=== PATIENT | male | born 1980 | race African-American/Black ===

== ENCOUNTER 2017-07-22 21:00 | Emergency (ER) | payer MEDICAID ==
[~2017-07-22] VITALS: Ht 172.7 cm; Wt 81.0 kg
[2017-07-23 00:13] VITALS: BP 96/60
== END 2017-07-23 02:33 | disposition home or self-care (01) ==
LOC: ED 23:59
DX: F10.120 Alcohol abuse with intoxication, uncomplicated (principal)
CPT/HCPCS: 99283

== ENCOUNTER 2017-07-31 14:48 | Emergency (ER) | payer MEDICAID ==
[~2017-07-31] VITALS: Ht 177.8 cm; Wt 91.0 kg
[2017-07-31 19:37] VITALS: BP 103/64
== END 2017-07-31 19:52 | disposition home or self-care (01) ==
LOC: ED 16:57
DX: F10.229 Alcohol dependence with intoxication, unspecified (principal)
CPT/HCPCS: 99283

== ENCOUNTER 2017-10-24 06:34 | Emergency (ER) | payer MEDICAID ==
[~2017-10-24] VITALS: Ht 182.9 cm; Wt 100.0 kg
[2017-10-24 12:49] VITALS: BP 115/69
== END 2017-10-24 12:51 | disposition home or self-care (01) ==
LOC: ED 08:45
DX: G93.40 Encephalopathy, unspecified (principal)
CPT/HCPCS: 99283

== ENCOUNTER 2017-10-29 07:18 | Emergency (ER) | payer MEDICAID ==
[~2017-10-29] VITALS: Ht 170.2 cm; Wt 80.0 kg
[2017-10-29] MEDS ORDERED: HYDROmorphone 2 MG/ML, 1ML ONE ×2 (07:46→09:21)
[2017-10-29] MEDS: HYDROmorphone 2 MG/ML, 1ML IM ONE ×2 (08:00→08:07)
[2017-10-29] MEDS ORDERED: HYDROmorphone 1 MG/ML, 1ML IV ONE ×2 (08:00→08:30)
[2017-10-29 09:31] VITALS: BP 104/65
== END 2017-10-29 09:44 | disposition home or self-care (01) ==
LOC: ED 08:05
DX: F19.10 Other psychoactive substance abuse, uncomplicated (principal); G89.29 Other chronic pain; M25.571 Pain in right ankle and joints of right foot
CPT/HCPCS: 73610; 96374; 99284; J1170

== ENCOUNTER 2018-01-04 19:44 | Emergency (ER) | payer MEDICAID ==
[~2018-01-04] VITALS: Ht 167.6 cm; Wt 91.0 kg
[2018-01-04 19:49] VITALS: BP 105/75
== END 2018-01-04 20:48 | disposition home or self-care (01) ==
LOC: ED 20:42
DX: S93.491A Sprain of other ligament of right ankle, initial encounter (principal); M19.071 Primary osteoarthritis, right ankle and foot; M10.9 Gout, unspecified; Z72.9 Problem related to lifestyle, unspecified; W19.XXXA Unspecified fall, initial encounter; Y93.89 Activity, other specified; Y99.8 Other external cause status; Y92.89 Other specified places as the place of occurrence of the external cause
CPT/HCPCS: 99284

== ENCOUNTER 2018-06-06 21:51 | Inpatient (IN) | payer MEDICAID ==
[~2018-06-06] VITALS: Ht 177.8 cm; Wt 95.6 kg
[2018-06-06 22:30] LABS: BASOPHILS # (AUTO) 0.01 x10^3/uL (0-0.1); BASOPHILS % (AUTO) 0 % (0-1); EOSINOPHILS # (AUTO) 0.26 x10^3/uL (0-0.4); EOSINOPHILS % (AUTO) 2 % (1-7); LYMPHOCYTES # (AUTO) 2.41 x10^3/uL (1-3.4); LYMPHOCYTES % (AUTO) 21 % (22-44); MD NO; MEAN CORPUSCULAR HEMOGLOBIN 31.7 pg (27.5-34.5); MEAN CORPUSCULAR HGB CONC 34.6 g/dL (33.2-36.2); MEAN CORPUSCULAR VOLUME 91.6 fL (81-97); MEAN PLATELET VOLUME 7.9 fL (7.4-10.4); MONOCYTES # (AUTO) 1.05 x10^3/uL (0.2-0.8); MONOCYTES % (AUTO) 9 % (2-9); NEUTROPHILS # (AUTO) 7.82 x10^3/uL (1.8-6.8); NEUTROPHILS % (AUTO) 68 % (42-75); PLATELET COUNT 271 x10^3/uL (130-400); RED BLOOD COUNT 4.66 x10^6/uL (4.38-5.82); RED CELL DISTRIBUTION WIDTH 13.7 % (9.4-14.8)
[2018-06-06 22:31] LABS: HCT (SEDRATE) 43.4 % (39.2-51.8)
[2018-06-06 22:40] LABS: ALANINE AMINOTRANSFERASE 25 U/L (12-78); ALBUMIN 3.5 g/dL (3.4-5.0); ANION GAP 10 mmol/L (5-15); CALCIUM 8.3 mg/dL (8.5-10.1); CHLORIDE 105 mmol/L (98-107); CREATININE 0.97 mg/dL (0.7-1.3)
[2018-06-06 22:47] LABS: ALKALINE PHOSPHATASE 53 U/L (45-117); TOTAL PROTEIN 7.7 g/dL (6.4-8.2)
[2018-06-06] MEDS ORDERED: KETOROLAC 30 MG/1 ML ONE (23:54)
[2018-06-06] MEDS ORDERED: MORPHINE SULFATE 4 MG/ML, 1ML ONE (23:54)
[2018-06-06] MEDS ORDERED: ONDANSETRON 2MG/ML, 2ML ONE (23:54)
[2018-06-07] MEDS ORDERED: MORPHINE SULFATE 4 MG/ML, 1ML IVPush PRN
[2018-06-07] MEDS ORDERED: SODIUM CHLORIDE FLUSH 10ML SYR IVF ONE
[2018-06-07] MEDS ORDERED: KETOROLAC 30 MG/1 ML IVPush ONE
[2018-06-07] MEDS ORDERED: ONDANSETRON 2MG/ML, 2ML IVPush ONE
[2018-06-07] MEDS ORDERED: VANCOMYCIN PER PHARMACY MC PRN (00:30)
[2018-06-07] MEDS ORDERED: AMPICILLIN/SULBACTAM 3 GM in SODIUM CHLORIDE 0.9% 100 ML IV ONE (00:30)
[2018-06-07] MEDS ORDERED: VANCOMYCIN 1,800 MG in SODIUM CHLORIDE 0.9% 250 ML IV ONE (01:00)
[2018-06-07 01:10] VITALS: BP 132/78
[2018-06-07] MEDS ORDERED: IBUP200C8 PO (01:33)
[2018-06-07] MEDS ORDERED: ACETAMINOPHEN 500 MG TABLET PO PRN (02:00)
[2018-06-07] MEDS ORDERED: ONDANSETRON ODT 4 MG PO PRN (02:00)
[2018-06-07] MEDS ORDERED: ZOLPIDEM 5MG TABLET PO PRN (02:00)
[2018-06-07] MEDS ORDERED: POLYETHYLENE GLYCOL 17 GM PACKET PO PRN (02:00)
[2018-06-07] MEDS ORDERED: ONDANSETRON 2MG/ML, 2ML IVPush PRN (02:00)
[2018-06-07] MEDS: HEPARIN 5,000 UNITS/ML, 1ML SQ SCH ×3 (02:10→19:52)
[2018-06-07] MEDS: OXYcodone IR 5MG TABLET PO PRN ×5 (02:10→21:17)
[2018-06-07] MEDS: SODIUM CHLORIDE 0.9% 1,000 ML IV SCH ×2 (02:10→14:59)
[2018-06-07] MEDS: AMPICILLIN/SULBACTAM 1,500 MG in SODIUM CHLORIDE 0.9% 50 ML IV SCH ×3 (06:21→19:52)
[2018-06-07 07:31] VITALS: BP 117/72
[2018-06-07] MEDS: KETOROLAC 30 MG/1 ML IV PRN ×2 (11:27→19:53)
[2018-06-07 13:26] VITALS: BP 137/61
[2018-06-07 19:52] VITALS: BP 120/76
[2018-06-08] MEDS: AMPICILLIN/SULBACTAM 1,500 MG in SODIUM CHLORIDE 0.9% 50 ML IV SCH ×3 (01:43→13:23)
[2018-06-08] MEDS: OXYcodone IR 5MG TABLET PO PRN ×4 (01:43→16:21)
[2018-06-08] MEDS: SODIUM CHLORIDE 0.9% 1,000 ML IV SCH ×2 (01:43→13:21)
[2018-06-08 01:50] VITALS: BP 110/74
[2018-06-08] MEDS: HEPARIN 5,000 UNITS/ML, 1ML SQ SCH ×2 (04:01→11:25)
[2018-06-08] MEDS: KETOROLAC 30 MG/1 ML IV PRN ×2 (05:31→11:24)
[2018-06-08 07:15] VITALS: BP 106/59
[2018-06-08] MEDS ORDERED: CEPH-368 PO (12:08)
[2018-06-08 17:40] VITALS: BP 140/98
== END 2018-06-08 17:30 | disposition home or self-care (01) | DRG 603 ==
LOC: ED 06-07 00:51 → 4NOR 06-07 00:55 → SUATTDRO 06-07 01:35 → ED 06-07 01:49
PROVIDERS: ADMIT Hospitalist; ATTEND Hospitalist
DX: L03.114 Cellulitis of left upper limb (principal); F17.210 Nicotine dependence, cigarettes, uncomplicated; Y04.2XXA Assault by strike against or bumped into by another person, initial encounter; Y93.89 Activity, other specified; Y92.89 Other specified places as the place of occurrence of the external cause; Y99.8 Other external cause status; M10.9 Gout, unspecified; F10.20 Alcohol dependence, uncomplicated; F19.11 Other psychoactive substance abuse, in remission
CPT/HCPCS: 36415; 80053; 85025; 85651; 86140; 96365; 96375; J0295; J1644; J1885; J2405; J7030

== ENCOUNTER 2018-07-26 15:12 | Emergency (ER) | payer MEDICAID ==
[~2018-07-26] VITALS: Ht 177.8 cm; Wt 88.6 kg
[~2018-07-26 15:12] MED LIST: CEPH-368 PO; IBUP200C8 PO
[2018-07-26] MEDS ORDERED: HYDROcodone/APAP 5/325 TABLET PO PRN (17:00)
[2018-07-26] MEDS ORDERED: KETOROLAC 30 MG/1 ML IM ONE (17:00)
[2018-07-26 17:54] VITALS: BP 136/86
== END 2018-07-26 18:10 | disposition home or self-care (01) ==
LOC: ED 18:04
DX: M54.16 Radiculopathy, lumbar region (principal); M25.562 Pain in left knee; M10.9 Gout, unspecified
CPT/HCPCS: 72110; 96372; 99284; J1885

== ENCOUNTER 2018-10-07 02:45 | Emergency (ER) | payer MEDICAID ==
[~2018-10-07] VITALS: Ht 177.8 cm; Wt 85.0 kg
[2018-10-07 12:31] VITALS: BP 122/79
== END 2018-10-07 12:34 | disposition home or self-care (01) ==
LOC: ED 08:39
DX: F10.120 Alcohol abuse with intoxication, uncomplicated (principal); Z72.9 Problem related to lifestyle, unspecified; F17.200 Nicotine dependence, unspecified, uncomplicated
CPT/HCPCS: 99283

== ENCOUNTER 2018-10-24 23:55 | Emergency (ER) | payer MEDICAID ==
[~2018-10-24] VITALS: Ht 177.8 cm; Wt 70.0 kg
[2018-10-25 00:01] VITALS: BP 148/85
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
--- NOTE | 2018-10-25 01:09 | NUR ---
THIS RN TO CHECK ON PT. PT FOUND URINATING IN THE SINK. PT INFORMED THAT IS NOT PROPER CONDUCT FOR THIS HOSPITAL. PT AMB W/ STEADY GAIT ACROSS ROOM. PA NOTIFIED. AWAITING D/C INSTRUCTIONS.
== END 2018-10-25 01:36 | disposition home or self-care (01) ==
LOC: ED 10-25 00:55
DX: F10.220 Alcohol dependence with intoxication, uncomplicated (principal)
CPT/HCPCS: 99283

== ENCOUNTER 2018-11-19 18:37 | Emergency (ER) | payer MEDICAID ==
[~2018-11-19] VITALS: Ht 177.8 cm; Wt 91.0 kg
--- NOTE | 2018-11-19 18:58 | NUR ---
PT BIB EMS FOR ETOH AND BEING UNABLE TO AMBULATE WHILE AT THE [facility]. PT TRANSFERRED TO ED [facility]. PT URINATED ON HIMSELF. PT ALERT TO VOICE. VSS. SIDERAILS UP X 2, CALL LIGHT IN REACH. PT HANDOFF REPORT TO BALBINA BUSTOS.
--- NOTE | 2018-11-19 18:59 | NUR ---
REPORT RECEIVED FROM AKASH AGUILAR. ASSUMED CARE OF PT
--- NOTE | 2018-11-19 19:04 | NUR ---
DR. DAS AT BEDSIDE EVALUATING PT
--- NOTE | 2018-11-19 19:45 | NUR ---
PT SLEEPING. RESPIRATIONS EVEN AND UNLABORED. O2 SATS REMAIN WITHIN NORMAL LIMITS. AWAITING PT TO SOBER UP FOR SAFE DISCHARGE
--- NOTE | 2018-11-19 20:51 | NUR ---
PT SLEEPING. TOSSING AND TURNING ON GURNEY. ALL VITALS STABLE. PT IN [facility] ROOM FOR MONITORING. WILL CONTINUE TO MONITOR.
[2018-11-19 22:16] VITALS: BP 112/63
--- NOTE | 2018-11-19 22:47 | NUR ---
PT CONTINUES TO SLEEP, CONTINUES TO MOVE AROUND WHILE REMAINING ASLEEP. VITALS STABLE. AWAITING PT TO SOBER UP FOR SAFE DISCHARGE.
--- NOTE | 2018-11-19 23:33 | NUR ---
PT AWAKE STANDING IN DOORWAY OF ROOM. AMBULATORY WITH STEADY GAIT. PT PROVIDED A CAB VOUCHER TO RESIDENCE.
--- NOTE | 2018-11-19 23:33 | NUR ---
Patient/Caregiver given discharge instructions and they have confirmed that they understand the instructions. Patient ambulatory with steady gait.
== END 2018-11-19 23:35 | disposition home or self-care (01) ==
LOC: ED 20:15
DX: F10.129 Alcohol abuse with intoxication, unspecified (principal); M10.9 Gout, unspecified; Z72.9 Problem related to lifestyle, unspecified; Y90.9 Presence of alcohol in blood, level not specified
CPT/HCPCS: 99283

== ENCOUNTER 2018-12-30 06:44 | Emergency (ER) | payer MEDICAID ==
[~2018-12-30] VITALS: Ht 177.8 cm; Wt 90.0 kg
[2018-12-30 06:46] VITALS: BP 138/98
[2018-12-30] MEDS ORDERED: LIDOCAINE-MPF 1%, 5ML ONE (06:59)
[2018-12-30] MEDS ORDERED: LIDOCAINE-MPF 1%, 5ML INFIL ONE (07:00)
--- NOTE | 2018-12-30 07:01 | NUR ---
PT STATED THAT HE HAS A TOOTH ACHE, BOTTOM LEFT SIDE THAT STARTED YESTERDAY. PT SMELLS LIKE ETOH.
[2018-12-30] MEDS ORDERED: KETOROLAC 30 MG/1 ML ONE (07:23)
[2018-12-30] MEDS ORDERED: KETOROLAC 30 MG/1 ML IM ONE (07:30)
--- NOTE | 2018-12-30 07:31 | NUR ---
PT MEDICATED PER ORDER. PT TOLERATED WELL.
--- NOTE | 2018-12-30 08:24 | NUR ---
Patient given discharge instructions and they have confirmed that they understand the instructions. Patient ambulatory with steady gait.
== END 2018-12-30 08:26 | disposition home or self-care (01) ==
LOC: ED 07:04
DX: K02.9 Dental caries, unspecified (principal); Z72.9 Problem related to lifestyle, unspecified
CPT/HCPCS: 64400; 96372; 99284; J1885

== ENCOUNTER 2019-01-02 20:20 | Emergency (ER) | payer MEDICAID ==
[~2019-01-02] VITALS: Ht 177.8 cm; Wt 54.0 kg
--- NOTE | 2019-01-03 01:06 | NUR ---
PT AWAKENS TO PHYSICAL STIMULI BUT PROMTPLY RETURNS TO SLEEP. VSS. NAD.
[2019-01-03 01:39] VITALS: BP 128/89
--- NOTE | 2019-01-03 03:03 | NUR ---
PT NOW AWAKE. PT EXPRESSION ANGER THAT HE IS NOT GETTING NARCOTICS. POC DISCUSSED. PT THROWING PAPERWORK. CALMING MEASURES UNSUCCESSFUL. PT STATES "SOMEONE'S GONNA OVER THIS AND IT AINT GOING TO BE ME".
--- NOTE | 2019-01-03 03:26 | NUR ---
PT AGAIN YELLING THAT HE IS NOT GETTING NARCOTICS. PT HAS RETURNED TO LAYING IN BED. PT ENCOURAGED TO LEAVE SINCE HE HAS BEEN DISCHARGED. PT REFUSING. SECURITY CALLED TO ASSIST IN DC.
== END 2019-01-03 03:31 | disposition home or self-care (01) ==
LOC: ED 23:59
DX: S42.432A Displaced fracture (avulsion) of lateral epicondyle of left humerus, initial encounter for closed fracture (principal); F17.200 Nicotine dependence, unspecified, uncomplicated; Z59.0 Homelessness; Z72.9 Problem related to lifestyle, unspecified; X58.XXXA Exposure to other specified factors, initial encounter; Y93.89 Activity, other specified; Y92.89 Other specified places as the place of occurrence of the external cause; Y99.8 Other external cause status
CPT/HCPCS: 29105; 99283

== ENCOUNTER 2019-08-25 01:02 | Emergency (ER) | payer MEDICAID ==
[~2019-08-25] VITALS: Ht 172.7 cm; Wt 75.0 kg
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
[2019-08-25 01:49] VITALS: BP 99/63
--- NOTE | 2019-08-25 02:17 | NUR ---
PT SLEEPING AT THIS TIME. NAD. VSS
--- NOTE | 2019-08-25 02:53 | NUR ---
PT WOKE UP AND IS ABLE TO AMBULATE WITH A STEADY GAIT. PT GIVEN CAB VOUCHER FOR SAFE DISCHARGE HOME
== END 2019-08-25 02:56 | disposition home or self-care (01) ==
LOC: ED 01:16
DX: F10.220 Alcohol dependence with intoxication, uncomplicated (principal)
CPT/HCPCS: 99283

== ENCOUNTER 2019-09-11 18:21 | Emergency (ER) | payer MEDICAID ==
[~2019-09-11] VITALS: Ht 177.8 cm; Wt 95.5 kg
[2019-09-11 18:40] VITALS: BP 140/81
--- NOTE | 2019-09-11 19:04 | NUR ---
ASSUMED CARE FROM [facility].
== END 2019-09-11 20:03 ==
LOC: ED 19:57
DX: M25.571 Pain in right ankle and joints of right foot (principal); F10.10 Alcohol abuse, uncomplicated; F17.210 Nicotine dependence, cigarettes, uncomplicated; Z72.9 Problem related to lifestyle, unspecified; Y90.0 Blood alcohol level of less than 20 mg/100 ml
CPT/HCPCS: 99283

== ENCOUNTER 2019-09-28 14:20 | Emergency (ER) | payer MEDICAID ==
[~2019-09-28] VITALS: Ht 185.4 cm; Wt 100.0 kg
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
--- NOTE | 2019-09-28 15:22 | NUR ---
ERP TO THE BS PT UNCOOPERATIVE
[2019-09-28 17:54] VITALS: BP 135/90
--- NOTE | 2019-09-28 18:49 | NUR ---
PT GIVEN NEW CRUTCHES AND WRAPPED ANKLE PT. A&OX4. AMBULATING W CRAFTAB. READY FOR DC
--- NOTE | 2019-09-28 18:50 | NUR ---
Patient/Caregiver given discharge instructions and they have confirmed that they understand the instructions. Patient ambulatory with steady gait.
== END 2019-09-28 18:52 | disposition home or self-care (01) ==
LOC: ED 18:45
DX: F10.120 Alcohol abuse with intoxication, uncomplicated (principal); Y90.0 Blood alcohol level of less than 20 mg/100 ml
CPT/HCPCS: 99283

== ENCOUNTER 2019-11-28 13:20 | Emergency (ER) | payer MEDICAID ==
[~2019-11-28] VITALS: Ht 177.8 cm; Wt 100.0 kg
[2019-11-28 13:30] VITALS: BP 119/72
--- NOTE | 2019-11-28 13:49 | NUR ---
MD at bedside. pt in with c/o pain.
[2019-11-28] MEDS ORDERED: KETOROLAC 30 MG/1 ML ONE (13:54)
[2019-11-28] MEDS ORDERED: KETOROLAC 30 MG/1 ML IM ONE (14:00)
--- NOTE | 2019-11-28 14:09 | NUR ---
xray at bedside.
--- NOTE | 2019-11-28 14:56 | NUR ---
Discussed dsicharge paperwork with pt. laundry tech in completing SHAKIRA wraps. pt currently stating that he "needs time to rest becuase of nerve damange" and that he does not currently feel stable. Communicated information to
== END 2019-11-28 15:45 | disposition home or self-care (01) ==
LOC: ED 15:28
DX: G89.11 Acute pain due to trauma (principal); M25.571 Pain in right ankle and joints of right foot; M10.9 Gout, unspecified; F17.200 Nicotine dependence, unspecified, uncomplicated
CPT/HCPCS: 73590; 96372; 99283; J1885

== ENCOUNTER 2019-12-21 04:27 | Emergency (ER) | payer MEDICAID ==
[~2019-12-21] VITALS: Ht 177.8 cm; Wt 91.0 kg
[2019-12-21 04:30] VITALS: BP 138/80
--- NOTE | 2019-12-21 05:19 | NUR ---
Attempted to breathalyze pt, pt uncooperative. Will continue to monitor.
--- NOTE | 2019-12-21 05:35 | NUR ---
PT UP WALKING AROUND ROOM UNASSISTED BY CRUTCHES.
== END 2019-12-21 05:40 | disposition home or self-care (01) ==
LOC: ED 05:25
DX: G89.29 Other chronic pain (principal); M25.571 Pain in right ankle and joints of right foot; M10.9 Gout, unspecified
CPT/HCPCS: 99283

== ENCOUNTER 2020-01-17 22:37 | Emergency (ER) | payer MEDICAID ==
[~2020-01-17] VITALS: Ht 177.8 cm; Wt 97.8 kg
[2020-01-17] MEDS ORDERED: KETOROLAC 30 MG/1 ML IM ONE (23:00)
[2020-01-17] MEDS ORDERED: KETOROLAC 30 MG/1 ML ONE (23:01)
[2020-01-18 00:35] VITALS: BP 141/99
== END 2020-01-18 00:37 | disposition home or self-care (01) ==
LOC: ED 23:04
DX: G89.29 Other chronic pain (principal); M25.561 Pain in right knee
CPT/HCPCS: 73610; 96372; 99283; J1885

== ENCOUNTER 2020-04-01 09:00 | Outpatient (CLI) | payer MEDICAID ==
[2020-04-01] MEDS ORDERED: None at this time (10:00)
== END 2020-04-01 23:59 | disposition home or self-care (01) ==
LOC: STAR 09:00
PROVIDERS: ATTEND Orthopaedic Surgery
DX: Z02.9 Encounter for administrative examinations, unspecified (principal)

== ENCOUNTER 2020-04-05 09:57 | Inpatient (IN) | payer MEDICAID ==
[~2020-04-05] VITALS: Ht 177.8 cm; Wt 153.0 kg
[~2020-04-05 09:57] MED LIST changes: +FENTANYL PF 100 MCG/2ML ONE; +MIDAZOLAM 1 MG/ML, 2ML ONE; +None at this time
[2020-04-05] MEDS ORDERED: CHLORHEXIDINE 15 ML UDC MM STA (10:24)
[2020-04-05] MEDS ORDERED: LACTATED RINGERS 1,000 ML IV ONE (10:24)
[2020-04-05] MEDS ORDERED: ROCURONIUM 10 MG/ML,10ML ONE (11:09)
[2020-04-05] MEDS ORDERED: SUCCINYLCHOLINE 20 MG/ML, 10ML ONE (11:09)
[2020-04-05] MEDS ORDERED: BUPIVACAINE/PF 0.5% ONE ×2 (11:33)
[2020-04-05] MEDS ORDERED: ONDANSETRON 2MG/ML, 2ML ONE (11:34)
[2020-04-05] MEDS ORDERED: CEFAZOLIN 1,000 MG ONE (11:34)
[2020-04-05] MEDS ORDERED: PROPOFOL 10 MG/ML, 20ML ONE (11:34)
[2020-04-05] MEDS ORDERED: DEXAMETHASONE 4 MG/ML, 1ML ONE (11:34)
[2020-04-05] MEDS ORDERED: FENTANYL PF 100 MCG/2ML ONE (12:27)
[2020-04-05] MEDS ORDERED: ROPIvacaine/PF 0.2%, 100ML 550 ML (check volume) INJ ONE (12:30)
[2020-04-05] MEDS ORDERED: hydrALAzine 20 MG/ML, 1ML IV PRN (13:00)
[2020-04-05] MEDS ORDERED: LORazepam 2 MG/ML, 1ML IVPush PRN (13:00)
[2020-04-05] MEDS ORDERED: ACETAMINOPHEN 325 MG TABLET PO PRN (13:00)
[2020-04-05] MEDS ORDERED: HYDROmorphone 1 MG/ML, 1ML INJ IVPush PRN (13:00)
[2020-04-05] MEDS ORDERED: MEPERIDINE/PF 25MG/0.5ML IVPush PRN (13:00)
[2020-04-05] MEDS ORDERED: LABETALOL 5MG/ML, 20ML IV PRN (13:00)
[2020-04-05] MEDS ORDERED: OXYcodone 5 MG/5 ML ORAL.SOL UDC PO PRN (13:00)
[2020-04-05] MEDS ORDERED: FENTANYL PF 100 MCG/2ML IV PRN (13:00)
[2020-04-05] MEDS ORDERED: PROMETHAZINE 25 MG/ML, 1ML IVPush PRN (13:00)
[2020-04-05] MEDS ORDERED: ALBUTEROL SULFATE 2.5 MG/3 ML NPPB PRN (13:00)
[2020-04-05] MEDS ORDERED: morphine SULFATE 10 MG/ML, 1ML IV PRN (16:00)
[2020-04-05] MEDS ORDERED: OXYcodone/APAP 5/325MG TABLET PO PRN (16:00)
[2020-04-05] MEDS ORDERED: PROMETHAZINE 25 MG/ML, 1ML IM PRN (16:00)
[2020-04-05] MEDS ORDERED: MAGNESIUM HYDROXIDE 8%, 30ML UDC PO PRN (16:00)
[2020-04-05] MEDS ORDERED: ONDANSETRON 2MG/ML, 2ML IV PRN (16:00)
[2020-04-05] MEDS ORDERED: SENNA/DOCUSATE TABLET PO PRN (16:00)
[2020-04-05] MEDS ORDERED: BISACODYL 10 MG SUPP PR PRN (16:00)
[2020-04-05 18:34] VITALS: BP 122/79
[2020-04-05 19:36] VITALS: BP 105/62
[2020-04-05] MEDS: DOCUSATE 100 MG CAPSULE PO SCH (19:54)
[2020-04-05] MEDS: CEFAZOLIN PMX 2GM/50ML 50 ML IVPB SCH (19:54)
[2020-04-05] MEDS: SODIUM CHLORIDE FLUSH 10ML SYR IVF SCH (20:14)
[2020-04-06 00:42] VITALS: BP 108/54
[2020-04-06] MEDS: DIPHENHYDRAMINE 25 MG CAPSULE PO PRN ×2 (01:16→02:27)
[2020-04-06] MEDS: CEFAZOLIN PMX 2GM/50ML 50 ML IVPB SCH (03:45)
[2020-04-06 04:20] VITALS: BP 105/69
[2020-04-06 07:21] VITALS: BP_SYST 112; BP_SYST 127; BP_DIAS 74; BP_DIAS 84
[2020-04-06] MEDS: SODIUM CHLORIDE FLUSH 10ML SYR IVF SCH (09:00)
[2020-04-06] MEDS ORDERED: ASPI81TA45 PO (09:11)
[2020-04-06] MEDS ORDERED: OXYC5TAB3 PO (09:48)
[2020-04-06] MEDS: DOCUSATE 100 MG CAPSULE PO SCH (09:48)
[2020-04-06 11:16] VITALS: BP 120/76
== END 2020-04-06 11:40 | disposition home or self-care (01) | DRG 494 ==
LOC: OUT 09:57 → EDSTATUS 12:30 → 4NE 14:56 → OUT 15:19 → DCLOUNGE 04-06 11:36
PROVIDERS: ADMIT Orthopaedic Surgery; ATTEND Orthopaedic Surgery
PROC: 0QBG0ZZ Excision of Right Tibia, Open Approach (ICD-10-PCS; principal; 2020-04-05 11:45)
PROC: 0QH Lower Bones, Insertion (ICD-10-PCS; 2020-04-05 11:45)
DX: M12.50 Traumatic arthropathy, unspecified site (principal); M24.60 Ankylosis, unspecified joint; M65.9 Synovitis and tenosynovitis, unspecified
CPT/HCPCS: 36415; 73600; 76000; S0020; 87635; G0378; J0690; J1100; J2250; J2405; J2704; J3010; J0330; J7120; Q0163

== ENCOUNTER 2021-04-29 17:16 | Emergency (ER) | payer MEDICAID ==
[~2021-04-29] VITALS: Ht 177.8 cm; Wt 91.0 kg
[~2021-04-29 17:16] MED LIST changes: +ASPI81TA45 PO; -FENTANYL PF 100 MCG/2ML ONE; -MIDAZOLAM 1 MG/ML, 2ML ONE; +OXYC5TAB98 PO
--- NOTE | 2021-04-29 17:30 | NUR ---
BREAK RN: THIS IS A 41 YO M BIB EMS W/ ETOH INTOXICATION. PER EMS NARCAN WAS GIVEN BY [facility]. PT DENIES DRUG USE AND ADMITS TO DRINKING A LOT OF ALCOHOL TODAY. PT SLURRING WORDS. AIRWAY INTACT. VSS, DOROTEO. REPORT TO DHIRAJ BUSTOS.
--- NOTE | 2021-04-29 18:18 | NUR ---
PT SLEEPING IN NAD, SPO2 97% RA, EVEN AND UNLABORED RESPIRATIONS OBSERVED.
[2021-04-29 18:44] LABS: BASOPHILS % (AUTO) 1 % (0-1); EOSINOPHILS % (AUTO) 4 % (1-7); LYMPHOCYTES % (AUTO) 35 % (22-44); MEAN CORPUSCULAR HEMOGLOBIN 30.7 pg (27.5-34.5); MEAN CORPUSCULAR HGB CONC 33.3 g/dL (33.2-36.2); MEAN PLATELET VOLUME 7.2 fL (7.4-10.4); MONOCYTES % (AUTO) 8 % (2-9); NEUTROPHILS % (AUTO) 53 % (42-75); PLATELET COUNT 247 x10^3/uL (130-400); RED BLOOD COUNT 4.99 x10^6/uL (4.38-5.82); RED CELL DISTRIBUTION WIDTH 14.1 % (9.4-14.8)
[2021-04-29 18:54] LABS: ALANINE AMINOTRANSFERASE 46 U/L (12-78); ALBUMIN 3.7 g/dL (3.4-5.0); ANION GAP 4 mmol/L (5-15); CALCIUM 8.4 mg/dL (8.5-10.1); CHLORIDE 109 mmol/L (98-107)
--- NOTE | 2021-04-29 18:54 | NUR ---
BEDSIDE REPORT TO ANN BUSTOS.
--- NOTE | 2021-04-29 18:55 | NUR ---
RECEIVED REPORT FROM DHIRAJ BUSTOS.
[2021-04-29 18:56] LABS: ALKALINE PHOSPHATASE 52 U/L (45-117); BILIRUBIN,TOTAL 0.3 mg/dL (0.2-1.0); CREATININE 0.78 mg/dL (0.7-1.3); TOTAL PROTEIN 7.3 g/dL (6.4-8.2)
--- NOTE | 2021-04-29 19:11 | NUR ---
Patient is sleeping comfortably in bed. eyes closed, pt snoring. Bed in lowest, rails engaged, call light on lap. Vital Signs within normal limits. WCTM.
[2021-04-29] MEDS ORDERED: COLCHICINE 0.6 MG CAPSULE PO ONE (19:30)
--- NOTE | 2021-04-29 20:09 | NUR ---
Patient is sleeping comfortably in bed. eyes closed, pt snoring. Bed in lowest, rails engaged, call light on lap. Vital Signs within normal limits. WCTM.
--- NOTE | 2021-04-29 20:30 | NUR ---
PT SLEEPING IN BED. EYES CLOSED. SNORING STILL IN BED. PT BREATHING EVEN AND UNALBORED. SP02 93%, HR 73. PT RIPPED OFF BP MONITOR EARLIER AND WAS AGGITATED LAST TIME AWAKE. SLEEPING CALMLY IN BED. WCTM.
--- NOTE | 2021-04-29 20:51 | NUR ---
PT AWAKE, SLURRING HIS WORDS. A&0X4, BREATHING EVEN AND UNLABORED. PT STATES WAKING UP IN THE HOSPITAL IS BETTER THAN WAKING UP IN GROUP HOME. GAVE PT BLANKETS. PT BREATHS SMELLS LIEK ALCOHOL. PT APPEARS INTOXICATED STILL.
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
[2021-04-29] MEDS ORDERED: COLCHICINE 0.6 MG CAPSULE ONE (21:56)
[2021-04-29 22:00] VITALS: BP 118/85
--- NOTE | 2021-04-29 22:01 | NUR ---
Patient/Caregiver given discharge instructions and they have confirmed that they understand the instructions. PT SPEECH IS CLEAR AND CONCISE. Patient ambulatory with steady gait. NAD, all questions answered appropriately, denies additional needs at this time. No personal belongings left in room after discharge. PT GIVEN APPLE JUICE AND BUS PASS FOR SAFE DC HOME. PT GAIT AT BASELINE WITH LIMP IN STEP FROM RIGHT ANKLE SURGERY.
== END 2021-04-29 22:04 | disposition home or self-care (01) ==
LOC: ED 21:00
DX: F10.120 Alcohol abuse with intoxication, uncomplicated (principal); M10.071 Idiopathic gout, right ankle and foot; Y90.0 Blood alcohol level of less than 20 mg/100 ml
CPT/HCPCS: 36415; 80053; 84550; 85025; 99283